=== PATIENT | female | born 1975 | race Caucasian/White ===

== ENCOUNTER 2019-11-23 07:00 | Observation (INO) | payer BC ==
[2019-11-22 15:11] LABS: BASOPHILS % (AUTO) 0.4 % (0.0-5.0); EOSINOPHILS % (AUTO) 0.3 % (0.0-8.0); LYMPHOCYTES % (AUTO) 11.2 % (21.0-51.0); MEAN CORPUSCULAR HEMOGLOBIN 25.6 pg (27.0-33.0); MEAN CORPUSCULAR HGB CONC 31.5 g/dL (32.0-36.0); MEAN CORPUSCULAR VOLUME 81.3 fL (79-99); MONOCYTES % (AUTO) 6.5 % (3.0-13.0); NEUTROPHILS % (AUTO) 81.4 % (40.0-77.0); PLATELET COUNT (AUTO) 559 K/uL (130-400); RED BLOOD CELL COUNT(AUTO) 4.92 MIL/uL (4.00-5.50); RED CELL DISTRIBUTION WIDTH 16.1 % (11.0-15.5); WHITE BLOOD COUNT (AUTO) 11.2 K/uL (4.8-10.8)
[2019-11-22 15:27] LABS: CREATININE 0.9 mg/dL (0.5-1.5); POTASSIUM 3.5 mmol/L (3.5-5.1)
[2019-11-22 15:46] VITALS: BP 140/82
--- NOTE | 2019-11-22 18:23 | NUR ---
LABS ABNORMAL WBC REPORTED TO DR. VILLAGOMEZ . NO FURTHER ORDERS GIVEN
[~2019-11-23] VITALS: Ht 167.6 cm; Wt 80.3 kg
[2019-11-23] VITALS (22 sets, daily range): BP systolic 123–163; BP diastolic 76–104
[~2019-11-23 07:00] MED LIST: CEFAZOLIN SODIUM 1 GM VIAL IVP SCH; LEVO50TA11 PO; LISI1TAB28 PO; LORA0.5T83 PO
[2019-11-23] MEDS ORDERED: SUCCINYLCHOLINE 200MG/10ML SYR ONE (07:14)
[2019-11-23] MEDS ORDERED: LIDOCAINE PF 2% 5ML ABBOJECT ONE ×2 (07:14→11:28)
[2019-11-23] MEDS ORDERED: FENTANYL CITRATE PF 50 MCG/1 ML 2ML VIAL ONE (07:15)
[2019-11-23] MEDS ORDERED: ROCURONIUM 10MG/1ML SYR 10 MG/ML ML ONE (07:15)
[2019-11-23] MEDS ORDERED: PROPOFOL 10 MG/ML 20ML VIAL IV ONE (07:15)
[2019-11-23] MEDS ORDERED: LACTATED RINGERS 1000ML 1,000 ML IV ONE (07:39)
[2019-11-23] MEDS ORDERED: MIDAZOLAM HCL 1 MG/ML 5ML VIAL ONE (09:29)
[2019-11-23] MEDS ORDERED: ROPIVACAINE 0.5% 5MG/ML 30ML IJ ONE (09:29)
[2019-11-23] MEDS ORDERED: PHENYLEPHRINE HCL 10 MG/ML 1ML VIAL IV ONE (09:58)
[2019-11-23] MEDS ORDERED: SODIUM CHLORIDE 0.9% 10 ML VIAL ONE (09:58)
[2019-11-23] MEDS ORDERED: CEFAZOLIN SODIUM 1 GM VIAL ONE ×2 (10:18→10:24)
[2019-11-23] MEDS ORDERED: NEOSTIGMINE 5MG/5ML SYR IV ONE (11:25)
[2019-11-23] MEDS ORDERED: GLYCOPYRROLATE 1 MG/5 ML SYRINGE ONE (11:25)
[2019-11-23] MEDS ORDERED: KETOROLAC TROMETHAMINE 30MG/ML ONE (11:26)
[2019-11-23] MEDS ORDERED: ONDANSETRON HCL 4 MG/2 ML VIAL ONE (11:26)
[2019-11-23] MEDS: SODIUM CHLORIDE 0.9% 1000ML 1,000 ML IV SCH ×2 (11:46→21:46)
[2019-11-23] MEDS ORDERED: HYDROCODONE/ACETAMINOPHEN 5/325 MG TAB PO PRN (12:00)
[2019-11-23] MEDS ORDERED: KETOROLAC TROMETHAMINE 15MG/ML IV PRN (12:00)
[2019-11-23] MEDS ORDERED: ONDANSETRON HCL 4 MG/2 ML VIAL IVP PRN (12:00)
[2019-11-23] MEDS: HYDROCODONE/ACETAMINOPHEN 5/325 MG TAB PO PRN ×3 (15:34→23:29)
[2019-11-23] MEDS: CEFAZOLIN SODIUM 1 GM VIAL IVP SCH (18:12)
[2019-11-23] MEDS ORDERED: KETOROLAC TROMETHAMINE 15MG/ML ONE (19:28)
[2019-11-23] MEDS: ENOXAPARIN SODIUM 40 MG/0.4 ML SYRINGE SQ SCH (21:15)
[2019-11-24] VITALS: BP 131/87
[2019-11-24] MEDS: KETOROLAC TROMETHAMINE 15MG/ML IV PRN ×2 (01:30→08:06)
[2019-11-24] MEDS: CEFAZOLIN SODIUM 1 GM VIAL IVP SCH (01:52)
[2019-11-24] MEDS: HYDROCODONE/ACETAMINOPHEN 5/325 MG TAB PO PRN ×2 (03:46→10:15)
[2019-11-24] MEDS: SODIUM CHLORIDE 0.9% 1000ML 1,000 ML IV SCH (03:46)
[2019-11-24 04:00] VITALS: BP 127/75
[2019-11-24] MEDS ORDERED: LORAZEPAM 0.5 MG TABLET PO PRN (05:45)
[2019-11-24] MEDS ORDERED: LEVOTHYROXINE 25 MCG TABLET ONE (07:19)
[2019-11-24] MEDS: ENOXAPARIN SODIUM 40 MG/0.4 ML SYRINGE SQ SCH (08:05)
[2019-11-24 08:29] VITALS: BP 129/85
[2019-11-24] MEDS ORDERED: HYDROCHLOROTHIAZIDE 25 MG TABLET PO SCH (09:00)
[2019-11-24] MEDS ORDERED: POLYETHYLENE GLYCOL 3350 17 GM POWD.PACK PO SCH (09:00)
[2019-11-24] MEDS ORDERED: LISINOPRIL 20 MG TABLET PO SCH (09:00)
[2019-11-24] MEDS ORDERED: LEVOTHYROXINE 50 MCG TABLET PO SCH (09:00)
--- NOTE | 2019-11-24 11:00 | NUR ---
pt stated understanding of all d/c instructions on after care for a clavicle fx, signs and symptoms to report to md, pain control and to continue script of norco already given out from dr arana's office, activity level and follow up appointment with outpatient pysical therapy starting at that time ; iv access has already been removed and pt is going to let me know when she is ready to go downstairs, at bedside to drive home.
== END 2019-11-24 12:16 | disposition home or self-care (01) ==
LOC: DAH 07:00 → DAHIP 07:01 → 4BH 12:53
PROVIDERS: ADMIT Orthopaedic Surgery; ATTEND Orthopaedic Surgery
PROC: 0PSB04Z Reposition Left Clavicle with Internal Fixation Device, Open Approach (ICD-10-PCS; principal; 2019-11-23 09:32)
DX: S42.022A Displaced fracture of shaft of left clavicle, initial encounter for closed fracture (principal); I10 Essential (primary) hypertension; E03.9 Hypothyroidism, unspecified; D64.9 Anemia, unspecified; V43.52XA Car driver injured in collision with other type car in traffic accident, initial encounter; Y93.89 Activity, other specified; Y92.488 Other paved roadways as the place of occurrence of the external cause; Y99.8 Other external cause status
CPT/HCPCS: 23515; 36415; 73000; 80048; 84703; 85025; 96372 ×2; 96374; 96375; 96376 ×2; A4215; A4221; A4222; A4223; A4565; A4649 ×2; A4663; A4930; A6207; A6223; A6453; C1713 ×5; C1776; G0168; G0378 ×19; J0330; J0690 ×4; J1650 ×2; J1885 ×4; J2001 ×2; J2250; J2370; J2405; J2704; J2710; J2795; J3010; J3490; J7120